=== PATIENT | female | born 1980 | race Caucasian/White ===

== ENCOUNTER 2025-04-18 10:01 | Day surgery (SDC) | payer OTHER, SELFPAY ==
--- NOTE | 2025-04-18 | PATH_ITS ---
[facility] Accession Number: [id number] No. of containers..01 Tissue . 01 Material submitted: . colon - SIGMOID POLYP . 01 Diagnosis: SIGMOID COLON POLYP: Tubular adenoma. MRV 04/24/2025 1305 Local . 01 Electronically signed: . Reno Alexandra MD, PhD, Pathologist NPI- [id number] . 01 Gross description: . SIGMOID POLYP: Received in formalin is 1 fragment(s) of [place], soft tissue measuring 0.6 x 0.5 x 0.4 cm submitted entirely in 1 cassette(s) /KORY 04/19/2025 1950 Local . 01 Pathologist provided ICD-10: D12.5 . 01 CPT . 228809 Specimen Comment: A courtesy copy of this report has been sent to [facility] Pathology Performed at: [address] [facility] [id number] MD Bernardo Marte MD Phone: [phone]
[2025-04-18 10:41] VITALS: BP 146/96; PULSE 83; RESP 18; TEMP 36.7; O2SAT 97
[2025-04-18] MEDS: LACTATED RINGERS 1,000 ML 42 ML IV (10:52)
--- NOTE | 2025-04-18 11:03 | P.HP_ITS ---
History of Present Illness History of Present Illness Date Patient Seen: 04/18/25 Time Patient Seen: 11:03 Chief complaint: Screening Colonoscopy Narrative: 44yo F, here for screening colonoscopy, first exam. Negative FH for colon CA, no colon symptoms. No blood thinners. The risks, benefits and options were explained to her in detail. She understands and is agreeable to proceed. PFSH Social History Smoking Status: Former smoker Meds Home Medications and Allergies Home Medications ?Medication ?Instructions ?Recorded ?Confirmed ?Type peg 3350-electrolytes 236 240 ml PO Q10M #4,000 mL Rx gram-22.74 gram-6.74 gram-5.86 gram solution (Golytely) albuterol sulfate 90 mcg/actuation 2 puff inhalation Q 4-6H PRN dyspnea 04/18/25 04/18/25 History aerosol inhaler hydrocodone 5 mg-acetaminophen 325 1 tab PO Q8H PRN pa in 04/18/25 04/18/25 History mg tablet Allergies Allergy/AdvReac Type Severity Reaction Status Date / Time No Known Drug Allergies Allergy Verified 04/18/25 10:38 Exam Vital Signs (past 8 hours): - 04/18/25 10:41 Temperature 98.1 F Pulse Rate 83 Respiratory Rate 18 Blood Pressure 146/96 H Pulse Oximetry 97 Oxygen Delivery Method Room Air Oxygen Delivery Method Room Air Const General: healthy appearing HENMT Head: normocephalic Ears: hearing grossly normal bilaterally Nose: external nose normal Eyes Visual Dash: normal visual dash by confrontation EOM: EOM intact bilaterally Resp Effort & Inspection: normal respiratory effort Cardio Rate: regular rate GI Inspection: normal to inspection Palpation: soft Neuro General: patient alert and patient oriented x3 Extrem General: normal to inspection Assessment & Plan Assessment and plan (1) Colonoscopy planned: Status: Acute Assessment & Plan narrative: Needs screening colonoscopy The risks, benefits and options regarding the procedure were explained to her in detail. She understands and is agreeable to proceed. Time-Based Coding :: [TOTAL MINUTES] spent with patient and on the chart (including review of chart, obtaining history, exam, reviewing outside data, placing orders, documenting exam and treatment plan, and counseling patient) on [DATE]. [employer] Document charge(s): No
[2025-04-18 11:57] VITALS: BP 145/91; PULSE 98; RESP 20; TEMP 36.1; O2SAT 97
[2025-04-18 12:02] VITALS: BP 135/95; PULSE 98; RESP 21; TEMP 36.1; O2SAT 97
--- NOTE | 2025-04-18 12:08 | P.OP.COLON_ITS ---
Operative Date/Time/Diagnoses Date of procedure: 04/18/25 Time of procedure: 12:08 Pre-op diagnosis: Needs screening colonoscopy Post-op diagnosis: same Procedure & Clinicians Study performed: Colonoscopy, screening Same procedure(s) as scheduled: Yes Indications: 44yo F, here for first screening colonoscopy Surgeon: Andrew Grider Procedure Notes SCOAP/Timeout: Performed Procedure in detail: Patient placed in left lateral recumbent position. Time out was performed. Procedural sedation was administered by anesthesia. Examination began with a thorough inspection of the perianal area there was no evidence of fissures, fistulae, external hemorrhoids or cutaneous malignancy. The colonoscopy scope was then placed into the rectum the lumen was insufflated with air. The scope was carefully advanced forward. Ultimately the cecum was intubated and confirmed by identification of the ileocecal valve, the appendiceal orifice and the confluence of the taenia. The scope was then slowly withdrawn examining colon thoroughly in all directions. In the rectum retroflexion of the scope was performed for inspection of the distal rectum and anal canal. The colonoscopy was notable for the followin. Quality of the preparation-good; [place] prep score 3 2. <1cm benign appearing sigmoid polyp, removed with cold snare Scope withdrawal time: 10 minutes Findings: polyp(s) (<1cm benign appearing sigmoid polyp, removed with cold snare) Specimen(s): other (sigmoid polyp) Complications: none Impression: Screening colonosocpy Single <1cm sigmoid polyp, benign appearing, await pathology Plan repeat screening colonoscopy in 10 years unless pathology concerning Post-procedure Recommendations: Colonoscopy in 10 years Follow up: as needed Disposition: PACU
[2025-04-18 12:20] VITALS: BP 137/90; PULSE 95; RESP 20; O2SAT 97
== END 2025-04-18 12:24 | disposition home or self-care (01) ==
PROVIDERS: PCP Family Medicine; Referring Provider Surgery; Visit Provider Surgery
PROC: 0DJD8ZZ Inspection of Lower Intestinal Tract, Via Natural or Artificial Opening Endoscopic (ICD-10-PCS; CPT 45378; principal; 2025-04-18 11:00)
DX: Z12.11 Encounter for screening for malignant neoplasm of colon (principal); Z87.891 Personal history of nicotine dependence; D12.5 Benign neoplasm of sigmoid colon
CPT/HCPCS: 45385; J2405; J2704